=== PATIENT | male | born 1950 | race Caucasian/White ===

== ENCOUNTER → 2016-12-20 | Outpatient (CLI) | payer BC ==
[~2016-12-20] MED LIST: ANTI INFLAM; HCTZ PO; PRINIVIL10 MG PO
== END | disposition home or self-care (01) ==
LOC: CLAB 10:42
DX: R50.9 Fever, unspecified (principal)
CPT/HCPCS: 36415; 87040

== ENCOUNTER → 2016-12-21 | Outpatient (CLI) | payer BC | END | disposition home or self-care (01) | LOC: CLAB 17:18 | DX: R19.7 Diarrhea, unspecified (principal); R50.9 Fever, unspecified | CPT/HCPCS: 87045; 87177; 87209; 87427; 87493; 87899 ==

== ENCOUNTER 2016-12-25 14:45 | Emergency (ER) | payer BC ==
--- NOTE | ~2016-12-25 | US85 ---
[facility] A Service of [facility] & [facility] RADIOLOGY TEXT RESULTS PATIENT: BEE HADDAD LOCATION: [place] : 54 UNIT #: [id number] AGE: [address]: Reginaldo Scott MD SEX: M ORDER DR: [id number] [facility] [address] [place], [place] [address] [id number] MR#: [id number] Acc #: [id number] NAME: BEE HADDAD : 1950 SEX: M STUDY DATE/TIME: 12/25/2016 15:45 UNIT: [place] ROOM: STUDY DESCRIPTION: [facility] [employer] or [facility] St[facility] Attending Physician: Reginaldo Scott M.D. Referring Physician: Osei Bowman M.D. Ordering Physician: Reginaldo Scott M.D. Primary Care Physician: Osei Bowman M.D. MEDICAL IMAGING REPORT This report is preliminary unless electronic signature is present EXAM Left lower extremity venous duplex, 12/25/2016. HISTORY Left lower extremity pain beginning this morning. Pain behind left knee. Left calf pain. Evaluate for deep venous thrombosis. TECHNIQUE Venous ultrasound examination of the left lower extremity was performed using grayscale, spectral Doppler and color flow Doppler imaging. FINDINGS The examination is negative. There is no evidence of left lower extremity deep venous thrombus from the groin to the lower calf. Visualized greater saphenous vein is also patent. IMPRESSION Negative examination. No evidence of left lower extremity deep venous thrombosis. Dictated by... Alejandro Garcia M.D. THIS IS AN ELECTRONICALLY VERIFIED REPORT Alejandro Garcia M.D. at 12/26/2016 10:26 AM DIAN/pamella TD: 12/25/2016 18:07 JOB #: [id number] MEDICAL IMAGING REPORT [facility] A Service of [facility] & [facility] RADIOLOGY TEXT RESULTS PATIENT: BEE HADDAD LOCATION: [place] : 54 UNIT #: [id number] AGE: [address]: Reginaldo Scott MD SEX: M ORDER DR: Page 1 of 1 COPY
[2016-12-25 15:26] LABS: BASOPHIL# 0.2 X10e3 (0-0.3); BASOPHIL% 2.2 % (0-2.5); DIFF IND NO; EOSINOPHIL# 0.3 X10e3 (0-0.7); EOSINOPHIL% 3.7 % (0.0-7.0); HEMATOCRIT 44.1 % (38.0-50.0); HEMOGLOBIN 14.6 gm/dL (13.0-16.0); LYMPHOCYTE# 2.4 X10e3 (1.0-3.5); LYMPHOCYTE% 32.2 % (17.0-45.0); MEAN CELL VOLUME 85.7 FL (83-96); MEAN CORPUSCULAR HEMOGLOBIN 28.3 PG (28-34); MEAN CORPUSCULAR HGB CONC 33.1 g/dL (30-36); MEAN PLATELET VOLUME 8.2 FL (6.5-11.5); MONOCYTE# 0.4 X10e3 (0-1.0); MONOCYTE% 4.9 % (3.0-12.0); NEUTROPHIL# 4.2 X10e3 (1.5-7.1); PLATELET COUNT 303 X10e3 (140-420); RED BLOOD COUNT 5.15 X10e (3.90-5.60); RED CELL DISTRIBUTION WIDTH 13.3 % (11.0-15.5); WHITE BLOOD COUNT 7.4 X10e3 (4.0-10.5)
[2016-12-25 15:37] LABS: PROTHROMBIN TIME (PATIENT) 10.7 SECONDS (9.6-11.5)
== END 2016-12-25 16:55 | disposition home or self-care (01) ==
LOC: CED 14:45
PROVIDERS: Emergency Medicine
DX: M79.652 Pain in left thigh (principal)
CPT/HCPCS: 36415; 85025; 85610; 93971; 99284